=== PATIENT | female | born 1995 | race Caucasian/White ===

== ENCOUNTER 2020-02-01 11:08 | Emergency (ER) | payer OTHER ==
[~2020-02-01] VITALS: Ht 152.4 cm; Wt 51.3 kg
[2020-02-01 11:21] VITALS: BP 111/61
--- NOTE | 2020-02-01 11:27 | NUR ---
urine cup handed to pt
--- NOTE | 2020-02-01 11:30 | NUR ---
PT PRESENTS TO THE ER C/O FLANK PAIN BILATERAL, FATIGUE, SUBJECTIVE FEVER, DSYURIA, FREQUENCY AND URGENCY OF URINATION FOR 4 DAYS, HEMATURIA AND NAUSEA WITH ONE EPISODE OF VOMITING FOR 2 DAYS. PT REPORTS HAS HX OF KIDNEY INFECTION. MILD CVAT BILATERAL BUT LEFT SIDE IS MORE PAINFUL THAN THE RIGHT SIDE. PATIENT STATES PAIN OF 6/10 AT THIS TIME; VSS; PATIENT POSITIONED FOR COMFORT; HOB ELEVATED; BEDRAILS UP X1; BED DOWN. ER MD MADE AWARE OF PT STATUS.
--- NOTE | 2020-02-01 11:32 | NUR ---
AMBULATED TO BED 2
--- NOTE | 2020-02-01 11:40 | NUR ---
DR. BAILEY IS EVALUATING PATIENT AT BEDSIDE.
[2020-02-01 12:18] LABS: APPEARANCE,URINE HAZY (CLEAR); BILIRUBIN,URINE NEGATIVE (NEGATIVE); BLOOD, URINE 2+ (NEGATIVE); COLOR,URINE YELLOW (YELLOW); LEUKOCYTE ESTERASE ,URINE 3+ (NEGATIVE); NITRITE, URINE NEGATIVE (NEGATIVE); UGLUCOSE NEGATIVE (NEGATIVE)
[2020-02-01 12:27] LABS: WBC,URINE 16-25 (MOD) /HPF (0-5)
[2020-02-01 13:04] VITALS: BP 109/60
--- NOTE | 2020-02-01 13:05 | NUR ---
Patient discharged with v/s stable. Written and verbal after care instructions given and explained. Patient alert, oriented and verbalized understanding of instructions. Ambulatory with steady gait. All questions addressed prior to discharge. ID band removed. Patient advised to follow up with PMD. Rx of zofran/keflex given. Patient educated on indication of medication including possible reaction and side effects. Opportunity to ask questions provided and answered.
== END 2020-02-01 13:05 | disposition home or self-care (01) ==
LOC: MED 11:08
DX: N12 Tubulo-interstitial nephritis, not specified as acute or chronic (principal); Z88.5 Allergy status to narcotic agent; Z88.8 Allergy status to other drugs, medicaments and biological substances
CPT/HCPCS: 81001; 81025; 87086; 99283

== ENCOUNTER 2020-09-07 11:00 | Outpatient (CLI) | payer OTHER, SELFPAY | END 2020-09-07 23:59 | disposition home or self-care (01) | LOC: MLB 11:00 → EDSTATUS 09-16 10:05 → MERGE 09-16 10:50 | PROVIDERS: ATTEND Internal Medicine Gastroenterology | DX: Z01.812 Encounter for preprocedural laboratory examination (principal); R63.4 Abnormal weight loss; R11.2 Nausea with vomiting, unspecified; Z20.828 Contact with and (suspected) exposure to other viral communicable diseases | CPT/HCPCS: U0003 ×2 ==

== ENCOUNTER 2021-06-04 02:25 | Emergency (ER) | payer OTHER, SELFPAY ==
[~2021-06-04] VITALS: Ht 152.4 cm; Wt 49.9 kg
[2021-06-04 02:25] VITALS: BP 111/69
--- NOTE | 2021-06-04 02:25 | NUR ---
TO BED 12 , BROUGHT IN BY AMBULANCE WITH LOWER ABD PAIN.
[2021-06-04 02:54] LABS: BASOPHILS % (AUTO) 0.1 % (0.0-2.0); EOSINOPHILS # (AUTO) 0.1 K/uL (0-0.4); EOSINOPHILS % (AUTO) 1.3 % (0.0-4.0); HEMATOCRIT 42.9 % (36-48); HEMOGLOBIN 14.4 g/dL (12.0-16.0); LYMPHOCYTES # (AUTO) 2.5 K/uL (2.5-16.5); LYMPHOCYTES % (AUTO) 49.8 % (20.5-51.1); MEAN CORPUSCULAR HEMOGLOBIN 31 pg (27-31); MEAN CORPUSCULAR HGB CONC 34 g/dL (33-37); MEAN CORPUSCULAR VOLUME 90.9 fL (80-94); MONOCYTES # (AUTO) 0.3 K/uL (0.8-1.0); MONOCYTES % (AUTO) 5.8 % (1.7-9.3); NEUTROPHILS # (AUTO) 2.2 K/uL (1.8-7.7); PLATELET COUNT (AUTO) 202 K/uL (140-450); RED BLOOD CELL COUNT(AUTO) 4.71 MIL/uL (4.20-5.40); RED CELL DISTRIBUTION WIDTH 12.3 % (11.6-13.7); WHITE BLOOD COUNT (AUTO) 5.1 K/uL (4.8-10.8)
[2021-06-04 03:08] LABS: ALBUMIN 4.8 g/dL (3.4-5.0); ANION GAP 12.6 (8-16); CARBON DIOXIDE 26.7 mmol/L (21-32); CREATININE 0.6 mg/dL (0.6-1.3); POTASSIUM 3.3 mmol/L (3.5-5.1); TOTAL BILIRUBIN 0.8 mg/dL (0.0-1.0)
[2021-06-04 03:14] LABS: APPEARANCE,URINE CLEAR (CLEAR); BILIRUBIN,URINE NEGATIVE (NEGATIVE); BLOOD, URINE NEGATIVE (NEGATIVE); COLOR,URINE YELLOW (YELLOW); LEUKOCYTE ESTERASE ,URINE NEGATIVE (NEGATIVE); NITRITE, URINE NEGATIVE (NEGATIVE); PH,URINE 5.5 (5.0-9.0); UGLUCOSE NEGATIVE (NEGATIVE)
--- NOTE | 2021-06-04 03:14 | NUR ---
PATIENT TO THE BATHROOM FOR URINE COLLECTION
--- NOTE | 2021-06-04 03:30 | NUR ---
MEDICATED PER ERMDS ORDER, TOLERATED WELL.
[2021-06-04] MEDS: NACL 0.9% 1,000 ML IV ONE (03:37)
[2021-06-04] MEDS: KETOROLAC 30 MG/ML VIAL IVP ONE (03:38)
[2021-06-04] MEDS: ACETAMINOPHEN EXTRA STRENGTH 500 MG TAB PO ONE (03:39)
--- NOTE | 2021-06-04 04:30 | NUR ---
ALL RESULTS BACK AND NOTED BY ERMD AND FOR D/C
[2021-06-04] MEDS ORDERED: NAPR-54 PO (04:40)
[2021-06-04 05:00] VITALS: BP 118/80
--- NOTE | 2021-06-04 05:00 | NUR ---
Patient discharged with v/s stable. Written and verbal after care instructions given and explained. Patient verbalized understanding. Ambulatory with steady gait. All questions addressed prior to discharge. Advised to follow up with PMD.
--- NOTE | 2021-06-07 19:36 | NUR ---
LATE ENTRY- 0.9% NS IVF DISCONTINUED AT 0500
== END 2021-06-04 05:00 | disposition home or self-care (01) ==
LOC: MED 02:25
DX: N80.4 Endometriosis of rectovaginal septum and vagina (principal); G89.29 Other chronic pain; R10.2 Pelvic and perineal pain; Z88.5 Allergy status to narcotic agent; Z88.8 Allergy status to other drugs, medicaments and biological substances
CPT/HCPCS: 36415; 80053; 81003; 81025; 83690; 85025; 96361; 96374; 99283; J1885; J7030